=== PATIENT | male | born 1945 | race Caucasian/White ===

== ENCOUNTER 2018-07-24 13:34 | Outpatient (CLI) | payer MEDICARE, SELFPAY ==
--- NOTE | 2018-07-24 10:00 | DI.RAD_ITS ---
SYMPTOM/DIAGNOSIS: LT WRIST PAIN, M25.539 LEFT WRIST; Four views including navicular view were performed. There are no prior comparison exams. There is abnormal widening of the scapholunate distance, consistent with ligament disruption. There is mild dorsal tilt of the lunate. There is a smoothly marginated bony density seen on the lateral view which could be related to old trauma. There are mild degenerative changes of the radial carpal joint and intercarpal and carpal metacarpal joints. IMPRESSION: Scapholunate ligament disruption and degenerative changes.
== END 2018-07-24 13:54 ==
PROVIDERS: PCP Emergency Medicine; Visit Provider Internal Medicine
DX: M25.532 Pain in left wrist (principal); M19.032 Primary osteoarthritis, left wrist; S63.592A Other specified sprain of left wrist, initial encounter
CPT/HCPCS: 73110

== ENCOUNTER 2018-12-24 15:00 | Outpatient (CLI) | payer MEDICARE, SELFPAY ==
--- NOTE | 2018-12-24 15:30 | DI.RAD_ITS ---
SYMPTOM/DIAGNOSIS: INJURY, DECREASED MOTION, EDEMA, S69.91XA RIGHT RING FINGER: Soft tissue swelling is noted over the dorsolateral portion of the distal metaphysis of the proximal phalanx of the ring finger. There are small bony densities adjacent to the distal metaphysis consistent with an acute fracture. There is no evidence of dislocation. There is no evidence of joint involvement.
== END 2018-12-24 15:20 ==
PROVIDERS: PCP Emergency Medicine
DX: S69.91XA Unspecified injury of right wrist, hand and finger(s), initial encounter (principal); S62.644A Nondisplaced fracture of proximal phalanx of right ring finger, initial encounter for closed fracture; M79.89 Other specified soft tissue disorders
CPT/HCPCS: 73140

== ENCOUNTER 2019-08-21 10:25 | Outpatient (CLI) | payer MEDICARE, SELFPAY ==
[2019-08-22 13:01] LABS: PSA, Screening 3.1 ng/mL (0.0-6.5)
== END 2019-08-21 10:45 ==
PROVIDERS: PCP Emergency Medicine; Visit Provider Emergency Medicine
DX: N40.0 Benign prostatic hyperplasia without lower urinary tract symptoms; Z12.5 Encounter for screening for malignant neoplasm of prostate; N47.8 Other disorders of prepuce
CPT/HCPCS: 36415; 84153; 99203; 99214; 83036

== ENCOUNTER 2020-03-29 00:05 | Outpatient (CLI) | payer MEDICARE, SELFPAY ==
--- NOTE | 2020-03-29 09:00 | ETT_ITS ---
APPROVED REPORT Exam: Exercise Treadmill Patient Location: Out-Patient Room/Bed: Stress Nurse: Sravanthi Rendon RN BMI: 21.56 Comment: Sinus Bradycardia, First Degree Heart Block. Indications: Patient testing today for further risk stratification as he has a family history of hear t disease. Medical History Medical History: No significant to report. Cardiac Medications: Aspirin. Allergies: No known drug allergies Cardiac Risk Factors: FHX of CAD Previous Cardiac Procedures: None reported per patient. Pretest Chest Pain Characteristics: None reported per patient. Exercise History: Physically active Physical Disabilities: None Noted. Lung Sounds: Clear to auscultation Heart Sounds: Regular Stress Test Details Test: Exercise stress testing was performed using a Greg protocol. Rest Stress HR Resting HR Supine: 49 bpm Max Heart Rate (APMHR): 147 bpm Resting HR Standin bpm Target HR (85% APMHR): 124 bpm Max HR Achieved: 171 bpm % of APMHR: 116 HR response to stress: Normal HR response to stress BP Resting BP Supine: 128/64 mmHg Resting BP Standin/58 mmHg Max BP: 150/54 mmHg BP response to stress: Normal blood pressure response to stress. ECG Resting ECG: Sinus Bradycardia, 1st degree AV block Ectopy: Rare PAC's and PVC's Stress ECG: Sinus Tachycardia ST Change: St Segment Depression Lead(s): lateral leads Stage: [address] Deviation: 1 mm Arrhythmia: None Recovery ECG: Sinus Rhythm Recovery ST Change: Normal Recovery Arrhythmia: None Clinical Reason for Termination: Fatigue Stress Symptoms: None reported per patient. Exercise duration: 12 min1 sec Highest Stage Reached: Stage 5: 5.0 mph at 18% grade. Exercise capacity: 13.49 METs Functional Capacity: Above average capacity Stress ECG Conclusion 1. The patient exercised for 12 minutes (14 METS) 2. Patient no symptoms suggestive of ischemia. 3. Patient [address] depressions in the lateral leads that resolved quickly during recovery. 4. The Zafar Score ( 7) estimates an annual cardiovascular mortality of 0% and a five year survival of 95%. Using the Zafar Score there is a low probability of any angiographic coronary disease. Stress Test Summary STAGE Time (mins) Speed (mph) Grade (%) HR BP SYMPTOMS METS Supine 49 128/64 Standing 55 116/58 1 3 1.7 10 103 128/62 4.6 2 6 2.5 12 120 140/56 7 3 9 3.4 14 125 144/60 10.2 4 12 4.2 16 135 12.9 1 min recovery 108 150/54 3 min recovery 84 146/60 6 min recovery 73 130/62
== END 2020-03-29 00:25 ==
PROVIDERS: PCP Emergency Medicine; Visit Provider Emergency Medicine
DX: I25.10 Atherosclerotic heart disease of native coronary artery without angina pectoris (principal); R55 Syncope and collapse; Z82.49 Family history of ischemic heart disease and other diseases of the circulatory system
CPT/HCPCS: 93016; 93018; 93017

== ENCOUNTER → 2020-11-10 15:27 | Outpatient (BNVA) | payer MEDICARE, SELFPAY | PROVIDERS: PCP Emergency Medicine; Referring Provider Emergency Medicine; Visit Provider Nurse Practitioner Gerontology | DX: N47.8 Other disorders of prepuce (principal) | CPT/HCPCS: 99213 ==

== ENCOUNTER 2020-11-30 15:56 | Outpatient (REF) | payer MEDICARE, SELFPAY ==
[2020-11-30 14:01] LABS: Calculated LDL 107 mg/dL (<100); Cholesterol 190 mg/dL (<200); HDL Cholesterol 58 mg/dL (40-60); Triglyceride 129 mg/dL (<150)
[2020-11-30 14:06] LABS: Hemoglobin A1C 5.7 % (<5.7)
== END 2020-11-30 15:57 | disposition home or self-care (01) ==
LOC: LBN 15:56
PROVIDERS: PCP Emergency Medicine; Visit Provider Emergency Medicine
DX: E11.9 Type 2 diabetes mellitus without complications (principal)
CPT/HCPCS: 80061; 83036

== ENCOUNTER → 2021-11-14 09:56 | Outpatient (BNVA) | payer MEDICARE, SELFPAY | PROVIDERS: PCP Family Medicine; Referring Provider Emergency Medicine; Visit Provider Nurse Practitioner Gerontology | DX: N40.1 Benign prostatic hyperplasia with lower urinary tract symptoms (principal); R35.0 Frequency of micturition; R39.81 Functional urinary incontinence; N47.8 Other disorders of prepuce; Z80.42 Family history of malignant neoplasm of prostate | CPT/HCPCS: 99214 ==

== ENCOUNTER 2021-11-17 02:03 | Outpatient (CLI) | payer MEDICARE, SELFPAY ==
[2021-11-17 18:46] LABS: PSA, Diagnostic 2.8 ng/mL (<=6.5)
== END 2021-11-17 02:04 | disposition home or self-care (01) ==
LOC: LBO 02:03
PROVIDERS: PCP Family Medicine; Visit Provider Nurse Practitioner Gerontology
DX: N47.8 Other disorders of prepuce (principal); R39.89 Other symptoms and signs involving the genitourinary system; Z85.46 Personal history of malignant neoplasm of prostate
CPT/HCPCS: 36415; 84153

== ENCOUNTER → 2022-04-05 02:00 | Outpatient (CLI) | payer MEDICARE, SELFPAY ==
--- NOTE | 2022-04-05 07:45 | DI.US_ITS ---
Exam(s) US HERNIA EXAM: US HERNIA CLINICAL HISTORY: lump in groin,?? hernia,R19.09 TECHNIQUE: Ultrasound performed using standard protocol. COMPARISON: No exams were available for comparison FINDINGS: Ultrasound examination of the inguinal region was performed to evaluate for suspected hernia. There is an apparent bowel containing right inguinal hernia measuring about 29 x 10 x 19 millimeters. No o ther focal herniation seen. Additional evaluation with CT may be considered if clinically appropriate. IMPRESSION: DATA REPOSITORY:
== END ==
PROVIDERS: PCP Nurse Practitioner Family; Visit Provider Nurse Practitioner Family
DX: K40.90 Unilateral inguinal hernia, without obstruction or gangrene, not specified as recurrent (principal)
CPT/HCPCS: 76857

== ENCOUNTER 2022-07-21 10:35 | Outpatient (REF) | payer MEDICARE, SELFPAY ==
--- NOTE | 2022-07-21 10:20 | SKI_PTH ---
PATIENT: Marcelo Cabrera LOC: N U#:[id number] AGE/SX: 76/M ROOM: RE07/21/[address]: David Delgado DO : 1945 BED: DIS: 07/21/2022 SPEC #: [id number] RECD: 07/21/22 18:19 STATUS: OJ REQ #: [id number] CARROL: 07/21/22 10:[address]: David Delgado DEPT: Surgical Specimen RECD BY: Gwendolyn Nassar ENTERED: 07/21/22 18:19 SP TYPE: SKI OTHR DR: Nabil Webb, PBX TECHNICIAN Tissues: 1 - SKIN BIOPSY(SHAVE/PUNCH) Procedures: SKIN LEVEL 4 Comments: [id number]
== END 2022-07-21 10:36 | disposition home or self-care (01) ==
LOC: LBN 10:35
PROVIDERS: PCP Nurse Practitioner Family; Visit Provider Otolaryngology Otolaryngology/Facial Plastic Surgery
DX: L81.4 Other melanin hyperpigmentation (principal)
CPT/HCPCS: 88305

== ENCOUNTER → 2022-11-13 10:02 | Outpatient (BNVA) | payer MEDICARE, SELFPAY | PROVIDERS: PCP Nurse Practitioner Family; Visit Provider Nurse Practitioner Gerontology | DX: N47.8 Other disorders of prepuce (principal); R39.89 Other symptoms and signs involving the genitourinary system; Z80.42 Family history of malignant neoplasm of prostate | CPT/HCPCS: 99213 ==

== ENCOUNTER → 2023-11-14 09:50 | Outpatient (BNVA) | payer MEDICARE, SELFPAY | PROVIDERS: PCP Nurse Practitioner Family; Visit Provider Nurse Practitioner Gerontology | DX: N47.8 Other disorders of prepuce (principal); R39.89 Other symptoms and signs involving the genitourinary system; Z80.42 Family history of malignant neoplasm of prostate | CPT/HCPCS: 99213 ==

== ENCOUNTER → 2024-04-16 10:27 | Outpatient (BNVA) | payer MEDICARE, SELFPAY | PROVIDERS: PCP Nurse Practitioner Family; Referring Provider Nurse Practitioner Family; Visit Provider Podiatrist | DX: M79.672 Pain in left foot (principal); G57.82 Other specified mononeuropathies of left lower limb; M67.02 Short Achilles tendon (acquired), left ankle | CPT/HCPCS: 29540; 99213 ==

== ENCOUNTER → 2024-05-14 13:53 | Outpatient (BNVA) | payer MEDICARE, SELFPAY | PROVIDERS: PCP Nurse Practitioner Family; Referring Provider Nurse Practitioner Family; Visit Provider Podiatrist | DX: M25.572 Pain in left ankle and joints of left foot (principal); M72.2 Plantar fascial fibromatosis; G57.82 Other specified mononeuropathies of left lower limb; M67.02 Short Achilles tendon (acquired), left ankle | CPT/HCPCS: 99213 ==

== ENCOUNTER 2024-11-05 09:34 | Outpatient (CLI) | payer MEDICARE, SELFPAY ==
[2024-11-05 10:15] LABS: Calculated LDL 115 mg/dL (<100); Cholesterol 189 mg/dL (<200); HDL Cholesterol 66 mg/dL (>or=40); Triglyceride 43 mg/dL (<150)
[2024-11-05 18:53] LABS: PSA, Screening 3.8 ng/mL (<=6.5)
== END 2024-11-05 09:35 | disposition home or self-care (01) ==
LOC: LBO 09:34
PROVIDERS: PCP Nurse Practitioner Family; Visit Provider Nurse Practitioner Family
DX: Z13.6 Encounter for screening for cardiovascular disorders (principal); Z12.5 Encounter for screening for malignant neoplasm of prostate
CPT/HCPCS: 36415; 80061; 84153; 86803

== ENCOUNTER → 2024-11-12 10:03 | Outpatient (BNVA) | payer MEDICARE, SELFPAY | PROVIDERS: Visit Provider Nurse Practitioner Gerontology | DX: N47.8 Other disorders of prepuce (principal); Z80.42 Family history of malignant neoplasm of prostate; R39.9 Unspecified symptoms and signs involving the genitourinary system; N13.8 Other obstructive and reflux uropathy; N40.1 Benign prostatic hyperplasia with lower urinary tract symptoms | CPT/HCPCS: 51798; 99213 ==

== ENCOUNTER → 2025-03-03 08:21 | Outpatient (BNVA) | payer MEDICARE, SELFPAY | PROVIDERS: Visit Provider Urology | DX: N50.812 Left testicular pain (principal); G89.28 Other chronic postprocedural pain; Z98.890 Other specified postprocedural states | CPT/HCPCS: 64425 ==

== ENCOUNTER → 2025-03-20 13:25 | Outpatient (BNVA) | payer MEDICARE, SELFPAY | PROVIDERS: Visit Provider Urology | DX: N50.812 Left testicular pain (principal) | CPT/HCPCS: 99213; 81002 ==

== ENCOUNTER → 2025-03-26 12:57 | Outpatient (BNVA) | payer MEDICARE, SELFPAY | PROVIDERS: Visit Provider Psychiatry & Neurology Neurology | DX: G62.9 Polyneuropathy, unspecified (principal); R73.9 Hyperglycemia, unspecified | CPT/HCPCS: 99215; 95886; 95887; 95908 ==

== ENCOUNTER 2025-04-03 04:04 | Outpatient (CLI) | payer MEDICARE, SELFPAY ==
[2025-04-03 10:26] LABS: ESR 10 mm/hr (0-20)
[2025-04-03 10:43] LABS: Hemoglobin A1C 5.7 % (<5.7)
[2025-04-03 11:13] LABS: Vitamin B12 342 pg/mL (193-986)
[2025-04-06 13:31] LABS: Albumin 60.6 % (55.8-66.1); Albumin g/dL 4.1 g/dL (3.6-5.2); Alpha 1 g/dL 0.30 g/dL (0.15-0.40); Alpha 2 g/dL 0.60 g/dL (0.50-1.00); Beta g/dL 0.80 g/dL (0.60-1.20); Gamma g/dL 0.90 g/dL (0.60-1.60); Total Protein 6.8 g/dL (6.3-8.2)
== END 2025-04-03 04:05 | disposition home or self-care (01) ==
PROVIDERS: Visit Provider Psychiatry & Neurology Neurology
DX: G62.9 Polyneuropathy, unspecified (principal); R73.9 Hyperglycemia, unspecified
CPT/HCPCS: 36415; 85652; 82607; 83036; 84165

== ENCOUNTER → 2025-05-21 09:33 | Outpatient (BNVA) | payer MEDICARE, SELFPAY | PROVIDERS: Visit Provider Urology | DX: N50.812 Left testicular pain (principal) | CPT/HCPCS: 99214 ==

== ENCOUNTER → 2025-06-02 01:41 | Outpatient (CLI) | payer MEDICARE, SELFPAY ==
--- NOTE | 2025-06-02 07:30 | DI.US_ITS ---
Exam(s) US SCROTUM EXAM: US SCROTUM CLINICAL HISTORY: evaluate for varicocele,LT TESTICULAR PAIN,N50.812. TECHNIQUE: Scrotal ultrasound performed using grayscale, color-flow and spectral Doppler analysis. COMPARISON: US US HERNIA from 04/05/2022 FINDINGS: RIGHT TESTICLE: 4.6 x 3.5 x 3.2 cm Echogenicity: Normal. Contour: Smooth. Mass: None seen. Microlithiasis: None. Hydrocele: None. Varicocele: None. Hernia: No peristalsing bowel loop identified. Epididymis: Normal. Scrotum: Normal. LEFT TESTICLE: 4.4 x 2.1 x 1.9 cm Echogenicity: Normal. Contour: Smooth. Mass: None seen. Microlithiasis: None. Hydrocele: None. Varicocele: Mildly dilated vessels up to 3.1 cm in diameter. Hernia: No peristalsing bowel loop identified. Epididymis: 6 millimeter spermatocele in the head. Scrotum: Normal. DOPPLER: Color: Symmetric and uniform, no hyperemia. Duplex: Bilateral testicular arterial waveforms visualized. IMPRESSION: Normal appearing bilateral testicles. Mild left varicocele. 6 millimeters spermatocele in the head of the left epididymis. DATA REPOSITORY:
== END ==
PROVIDERS: PCP Family Medicine; Visit Provider Urology
DX: N50.812 Left testicular pain (principal)
CPT/HCPCS: 76870